=== PATIENT | male | born 1985 | race Caucasian/White ===

== ENCOUNTER 2020-01-27 18:06 | Emergency (ER) | payer BC ==
[~2020-01-27] VITALS: Ht 172.7 cm; Wt 90.7 kg
[2020-01-27 18:14] VITALS: Ht 172.7 cm; Wt 90.7 kg
[2020-01-27 18:49] LABS: microscopic required? NO
[2020-01-27 18:57] LABS: urine erythrocyte NEGATIVE (NEGATIVE)
[2020-01-27 19:01] LABS: CALCIUM 8.5 mg/dL (8.5-10.1); CARBON DIOXIDE 33.5 mmol/L (21-32); CHLORIDE SERUM 104 mmol/L (98-107); CREATININE SERUM 1.3 mg/dL (0.7-1.3); GFR1 > 60 mL/min; GLUCOSE SERUM 97 mg/dL (74-106); POTASSIUM SERUM 3.7 mmol/L (3.5-5.1); SODIUM SERUM 141 mmol/L (136-145)
[2020-01-27 19:05] LABS: BASOPHIL % 0.6 % (0-2); PLATELET COUNT 223 x10^3mcL (130-400); RED CELL DISTRIBUTION WIDTH 13.7 % (11.5-14.5)
[2020-01-27 19:06] LABS: ALBUMIN 4.2 g/dL (3.4-5.0); ALKALINE PHOSPHATASE 47 U/L (46-116); ALT/SGPT 35 U/L (16-63); AST/SGOT 56 U/L (15-37); BILIRUBIN TOTAL 2.1 mg/dL (0.20-1.00); LIPASE 160 IU/L (73-393); TOTAL PROTEIN, SERUM 7.6 g/dL (6.4-8.2)
[2020-01-27 19:13] LABS: AMPHETAMINE QUAL UR NONE DETECTED (See below)
[2020-01-27 22:13] VITALS: BP 103/71
== END 2020-01-27 22:13 | disposition home or self-care (01) ==
LOC: ED 18:06
PROVIDERS: Emergency Medicine
DX: K59.00 Constipation, unspecified (principal)
CPT/HCPCS: 36415